=== PATIENT | female | born 1975 | race African-American/Black ===

== ENCOUNTER 2017-03-16 14:18 | Emergency (ER) | payer OTHER ==
[2017-03-16 14:19] VITALS: BP 130/78; PULSE 94; RESP 14; TEMP 98; O2SAT 99
--- NOTE | 2017-03-16 14:29 | PD ---
HPI Chief Complaint: Pain: Acute or Chronic Time Seen by Provider: 14:29 Travel History International Travel<30 days: No Contact w/Intl Traveler<30days: No Traveled to known affect area: No History of Present Illness HPI 41 YO female with PMH of bilateral carpal tunnel impingement presents to the ED for evaluation of 2 week history of left shoulder pain. Sudden onset. Patient can identify no acute injury. Patient states the pain occasionally radiates down the outer aspect of the arm. Patient endorses limited range of motion stating that the pain is exacerbated by attempting to raise the arm overhead, perform motions like brushing the hair or external rotation while arm is at the side. She denies weakness of the extremity. She does state that she travels frequently for work and may have "lifted luggage wrong." PFSH Past Medical History Arthritis: No Asthma: No Heart Rhythm Problems: No Cardiovascular Problems: No High Cholesterol: Yes Chest Pain: No Congestive Heart Failure: No COPD: No Diminished Hearing: No Genitourinary: No Headaches: No Hypertension: No Musculoskeletal: No Neurologic: No Respiratory: No Immunizations Current: No Migraines: No Myocardial Infarction: No Seizures: No Sleep Apnea: No : 3 Para: 1 Miscarriage: 1 Past Surgical History Abdominal Surgery: No Cardiac Surgery: No Cholecystectomy: Yes (1997) Endocrine Surgery: No Eye Surgery: No Genitourinary Surgery: No Gynecologic Surgery: No Oral Surgery: No Thoracic Surgery: No Other Surgery: Yes (mehdi benson in 1996) Social History Alcohol Use: Yes (RARELY) Tobacco Use: No Substance Use: No Allergies-Medications (Allergen,Severity, Reaction): Coded Allergies: Lortab (Verified Allergy, Severe, RASH/ITCHING, 01/23/17) Shrimp (Verified Allergy, Severe, SWELLING, 01/23/17) Codeine (Verified Allergy, Intermediate, Nausea/Vomiting, 01/23/17) Reported Meds & Prescriptions Reported Meds & Active Scripts Active Naproxen 500 Mg Tab 500 Mg PO BID Review of Systems Except as stated in HPI: all other systems reviewed are Neg Physical Exam Narrative GENERAL: Well-nourished, well-developed pleasant black female in no acute distress. SKIN: Focused skin assessment warm/dry. HEAD: Normocephalic. EYES: No scleral icterus. No injection or drainage. NECK: Supple, trachea midline. No JVD or lymphadenopathy. CARDIOVASCULAR: Regular rate and rhythm without murmurs, gallops, or rubs. RESPIRATORY: Breath sounds equal bilaterally. No accessory muscle use. GASTROINTESTINAL: Abdomen soft, non-tender, nondistended. MUSCULOSKELETAL: No cyanosis, or edema. FOCUSED LEFT UPPER EXTREMITY EXAM: 2+ radial pulse. No tenderness to palpation over the clavicle, scapula, acromioclavicular joint or head of the humerus. Pain elicited with external rotation while the elbow is bent at 90. Pain elicited with attempted abduction greater than 90. Strength 5/5. Neurovascularly intact distally. BACK: Nontender without obvious deformity. No CVA tenderness. Data Data Last Documented VS Vital Signs Date Time Temp Pulse Resp B/P Pulse Ox O2 Delivery O2 Flow Rate FiO2 03/16/17 14:19 98.0 94 14 130/78 99 Orders Shoulder, Complete (>2vws) (03/16/17 14:30) Ice/Cold Pack (03/16/17 14:30) Ketorolac Inj (Toradol Inj) (03/16/17 15:15) MDM Medical Decision Making Medical Screen Exam Complete: Yes Emergency Medical Condition: Yes Differential Diagnosis Rotator cuff injury versus acromioclavicular separation versus osteoarthritis versus less likely fracture versus other Narrative Course 41 YO female with PMH of bilateral carpal tunnel impingement presents to the ED for evaluation of 2 week history of left shoulder pain. Sudden onset, occasionally radiates down the outer aspect of the arm. Patient endorses limited ROM, exacerbated by attempting to raise the arm overhead, perform motions like brushing the hair or external rotation while arm is at the side. She denies weakness of the extremity. Vitals reviewed. Physical exam reveals no tenderness to palpation of the joint. There is pain elicited with external rotation and abduction of the arm. Exam consistent with rotator cuff injury. XR reveals no acute bony injury. We'll treat for tendinitis, discharge for outpatient follow-up with orthopedist. Patient was administered 60 mg Toradol IM. She is prescribed a short course of anti-inflammatory medications. She is instructed to return to normal, gentle activities as tolerated, follow-up with the orthopedist for continuing symptoms. She indicated understanding and is agreeable to the plan. She is stable and discharged home. Diagnosis Primary Impression: Injury of left rotator cuff Qualified Code: S46.002A - Injury of left rotator cuff, initial encounter Referrals: Orthopedist Patient Instructions: General Instructions Additional Instructions: Rest, hydrate. No heavy lifting with the left arm for 2 weeks. Return to normal, gentle activities as tolerated. Take naproxen twice a day as prescribed. Begin tomorrow. Ice applied to the area for 10-15 minutes a few times a day may also help to decrease your pain symptoms and inflammation. Follow-up with the orthopedist as discussed. Return to the ED for any urgent or emergent medical condition. Med/Other Pt SpecificInfo: Prescription(s) given Scripts Naproxen 500 Mg [id number] Mg PO BID #20 TAB Ref 0 Prov:Kady Chappell MD 03/16/17 Disposition: 01 DISCHARGE HOME Condition: Stable Emi Christianson Mar 16, 2017 14:29
[2017-03-16] MEDS ORDERED: NAPR500T PO (15:13)
[2017-03-16] MEDS ORDERED: KETOROLAC TROMETHAMINE 60 MG/2 ML (IM) VIAL IM ONE (15:15)
--- NOTE | 2017-03-16 15:42 | RADRPT ---
EXAM DATE/TIME: 03/16/2017 14:46 [facility] COMPARISON: No previous studies available for comparison. INDICATIONS : Left shoulder pain. MEDICAL HISTORY : None. SURGICAL HISTORY : None. ENCOUNTER: Initial ACUITY: 2 weeks PAIN SCORE: 7/10 LOCATION: Left Entire shoulder FINDINGS: Multiple view examination of the left shoulder demonstrates no evidence of fracture or dislocation. The glenohumeral and acromioclavicular joints are maintained. There is normal range of motion betwee n internal and external rotation. Bony mineralization is normal. CONCLUSION: No acute disease. Kodi Noland MD on March 16, 2017 at 15:39 Board Certified Radiologist. This report was verified electronically.
== END 2017-03-16 15:48 | disposition home or self-care (01) ==
LOC: NEPD 14:18
DX: S46.002A Unspecified injury of muscle(s) and tendon(s) of the rotator cuff of left shoulder, initial encounter (principal); X58.XXXA Exposure to other specified factors, initial encounter
CPT/HCPCS: 73030; 96372; 99284; J1885

== ENCOUNTER 2017-06-03 12:43 | Emergency (ER) | payer OTHER ==
[~2017-06-03] VITALS: Ht 167.6 cm; Wt 88.0 kg
[~2017-06-03 12:43] MED LIST: NAPR500T PO
[2017-06-03 12:45] VITALS: BP 119/63; PULSE 81; RESP 17; TEMP 98.4; O2SAT 98
[2017-06-03] MEDS ORDERED: ROBA500T PO (13:29)
[2017-06-03] MEDS ORDERED: IBUP800T23 PO (13:29)
[2017-06-03] MEDS ORDERED: METHOCARBAMOL 500 MG TAB PO ONE (13:30)
[2017-06-03] MEDS ORDERED: IBUPROFEN 800 MG TAB PO ONE (13:30)
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
== END 2017-06-03 13:49 | disposition home or self-care (01) ==
LOC: EDTENT 12:43
DX: S46.812A Strain of other muscles, fascia and tendons at shoulder and upper arm level, left arm, initial encounter (principal); M62.830 Muscle spasm of back; E78.00 Pure hypercholesterolemia, unspecified; V43.62XA Car passenger injured in collision with other type car in traffic accident, initial encounter; Z88.5 Allergy status to narcotic agent
CPT/HCPCS: 99283